=== PATIENT | female | born 1955 | race African-American/Black ===

== ENCOUNTER 2016-10-26 17:18 | Emergency (ER) | payer MEDICAID ==
[~2016-10-26] VITALS: Ht 165.1 cm; Wt 65.8 kg
[~2016-10-26 17:18] MED LIST: AMBIEN5 MG GT; ARTIFICIAL TEA1 EAC2 BOTH EYES; ATORVASTATIN CA20 MG GT; CATAPRES0.1 MG GT; CEPHULAC10 GM/15 M GT; DIPHENHYDRAMINE25 M1 GT; DOCUSATE S50 MG/5 ML GT; ENALAPRIL MALEA10 MG PO; FISH OIL500 MG GT; FLEET ENEMA133 ML RECTAL; GERI-LANTA LIQ355 ML PO; GUAIFENESIN-CO118 M1 GT; MAALOX SUSPENS355 ML GT; METOPROLOL SUC100 MG GT; MULTIVITAMIN HEX5 ML GT; NEXIUM20 MG GT; NEXIUM40 MG PO; NORCO 5-325 TA1 EACH GT; POTASSIUM20 MEQ/15 GT; PRO-STAT 64 LI887 ML GT; SIMVASTATIN40 MG GT; SIMVASTATIN40 MG PO; TYLENOL325 MG GT; TYLENOL650 MG/20. ORAL; VOLTAREN100 G1 TP; ZESTRIL20 MG GT; ZESTRIL20 MG PO; ZOFRAN4 M1 GT
[2016-10-26 17:39] VITALS: BP 198/110
--- NOTE | 2016-10-26 19:37 | Emergency Room Report ---
History of Present Illness General Chief Complaint: Malfunctioning Gastric Tube Source: Patient Present Illness HPI Patient is a 60-year-old female who presented for G-tube replacement after G- tube accidentally became dislodged. Patient had recently had G-tube replacement. A Vences catheter was placed in the stoma which had also become dislodged.The patient denies any other complaints this time. Allergies: Coded Allergies: No Known Allergies (Verified , 11/13/08) Patient History Reviewed Nursing Documentation: PMH: Agreed, PSxH: Agreed Nursing Documentation-PMH Past Medical History: No History, Except For Hx Hypertension: Yes Hx Pacemaker: No Hx Asthma: No Hx COPD: No Hx Diabetes: Yes Hx Cancer: No Hx Gastrointestinal Problems: Yes Hx Dialysis: No Hx Neurological Problems: Yes - Left Hemiparesis, APHASIA, DYSPHAGIA Hx Cerebrovascular Accident: Yes Hx Seizures: No Hx Paralysis: Yes Hx Speech Problem: Yes - APHASIC Hx Aphasia: Yes Hx Dysphasia: Yes Review of Systems All Other Systems: negative except mentioned in HPI Physical Exam Vital Signs Date Time Temp Pulse Resp B/P Pulse Ox O2 Delivery O2 Flow Rate FiO2 10/26/16 17:18 98.1 122 24 198/110 98 Room Air General Appearance: well appearing, no apparent distress, alert Head: normocephalic, atraumatic ENT: hearing grossly normal, normal voice Neck: full range of motion, supple Respiratory: no respiratory distress, speaking full sentences Musculoskeletal: no calf tenderness, other - left upper extremity weakness, nonverbal, types Neurologic: alert, oriented x3, responsive, normal gait Psychiatric: mood/affect normal Skin: no rash Medical Decision Making Diagnostic Impression: Primary Impression: feeding tube placement ER Course Patient presented for G-tube replacement. Gastrostomy tube was replaced with sterile technique with an 18 [place] G-tube. Post procedure x-ray showed adequate gastrostomy tube placement. Patient tolerated well without complications. The patient was discharged back to senior care. Patient was return for persistent vomiting, other concerns. Last Vital Signs Date Time Temp Pulse Resp B/P Pulse Ox O2 Delivery O2 Flow Rate FiO2 10/26/16 17:39 98.1 76 24 198/110 98 Room Air Status: improved Disposition: HOME, SELF-CARE Condition: Stable Referrals: KRISTEN ARREOLA (PCP) Patient Instructions: Gastrostomy Tube Home Guide, Adult Armando Cooper Oct 26, 2016 19:37
[2016-10-26] MEDS ORDERED: Nitroglycerin Subl 0.4mg tab (Bottle Of 25) SL ONE ×2 (20:38→20:45)
[2016-10-26 20:45] VITALS: BP 196/104
--- NOTE | 2016-10-27 12:58 | Diagnostic Imaging Report ---
Indication: Abdominal pain Comparison: None Single view of the abdomen obtained Contrast injected into the gastrostomy shows contrast material in the stomach. The balloon is in the midportion of the stomach. Impression: Unremarkable gastrostomy check
== END 2016-10-26 20:00 | disposition home or self-care (01) ==
LOC: EDBD 17:18 → EMR 18:00
DX: Z43.1 Encounter for attention to gastrostomy (principal); K94.23 Gastrostomy malfunction; I10 Essential (primary) hypertension; E11.9 Type 2 diabetes mellitus without complications; K92.9 Disease of digestive system, unspecified; G81.94 Hemiplegia, unspecified affecting left nondominant side; R47.01 Aphasia; R13.10 Dysphagia, unspecified; R47.02 Dysphasia
CPT/HCPCS: 43760; 74000; 99284; Q9963